=== PATIENT | male | born 1990 | race Caucasian/White ===

== ENCOUNTER 2021-02-20 22:10 | Emergency (ER) | payer SELFPAY ==
[2021-02-20 22:22] VITALS: BP 148/79; PULSE 80; RESP 15; TEMP 36.4; O2SAT 98
== END 2021-02-21 05:00 | disposition left against medical advice (07) ==
PROVIDERS: PCP Physician Assistant
DX: Z53.21 Procedure and treatment not carried out due to patient leaving prior to being seen by health care provider (principal)
CPT/HCPCS: 99199

== ENCOUNTER 2022-02-04 11:34 | Emergency (ER) | payer BC, SELFPAY ==
--- NOTE | ~2022-02-04 | XR_ITS ---
EXAMINATION: XR chest 1V 02/04/2022 12:53 INDICATION: Cough and congestion. Shortness of breath. PROCEDURE: AP view of the chest COMPARISON: No prior studies for comparison. FINDINGS: The lungs are clear. The cardiomediastinal silhouette is within normal limits. There are no pleural effusions. There is no pneumothorax suspected. IMPRESSION: 1: NO ACUTE CARDIOPULMONARY DISEASE. Reviewed, dictated and finalized at location A. CAL RECORD TECHNICIAN
[2022-02-04 12:20] VITALS: BP 144/89; PULSE 89; RESP 20; TEMP 36.6; O2SAT 97
[2022-02-04 13:19] LABS: Influenza A QL RT-PCR Positive (Negative); Influenza B QL RT-PCR Negative (Negative); RSV RNA, RT-PCR Negative (Negative); SARS-CoV-2 RNA PCR Negative
--- NOTE | 2022-02-04 13:24 | ED.SOB ---
HPI - SOB/Dyspnea General Chief Complaint: Shortness of Breath/Dyspnea Stated Complaint: SOB Time Seen by Provider: 02/04/22 13:08 History of Present Illness HPI Narrative: Patient is a 31-year-old male with a history of asthma presenting with shortness of breath. Patient states that he has had URI symptoms for the last 5 days. He went to another ER 2 days ago and was discharged with steroids and Tessalon Perles. States that he was feeling better but when he went to work today he was very short of breath so his work sent him home. States that taking a deep breath makes him cough really hard. He denies any chest pain, palpitations, lightheadedness. States that he mostly feels short of breath with exertion. States he continues to have a cough but he no longer has a fever. No headache, abdominal pain, nausea or vomiting, diarrhea, leg swelling. Related Data Home Medications Medication Instructions Recorded Confirmed benzonatate 100 mg capsule 100 mg PO TID 02/04/22 prednisone 20 mg tablet 40 mg PO DAILY 02/04/22 Allergies Allergy/AdvReac Type Severity Reaction Status Date / Time cefaclor Allergy Unknown Unknown Verified 02/13/19 19:23 Sulfa (Sulfonamide Allergy Unknown Unknown Verified 02/13/19 19:23 Antibiotics) Review of Systems Review of Systems: All systems reviewed & are unremarkable except as noted in HPI and below PMFSH Past Medical History Medical History Shoulder pain Chronic Surgical History Surgical History History of myringotomy Family History Family History Mother Hypertension Other Family history of allergic disorder Family history of cardiovascular disease Family history of malignant neoplasm Social History Social History Smoking status: Former smoker Smoking end date: 03/08/14 Alcohol intake: current Gender identity (if verbalized by the patient): Male Exam Narrative: GENERAL: Well-appearing, well-nourished, and in no acute distress. HEAD: Normocephalic, atraumatic. EYES: PERRLA and EOMI. ENT: Nares clear, no rhinorrhea or epistaxis. Mucous membranes moist. NECK: Supple. CHEST: Scattered wheezing bilaterally, no crackles. No respiratory distress. HEART: Regular rate and rhythm. No murmur heard. Normal peripheral pulses. ABDOMEN: Soft, nontender, nondistended, normal active bowel sounds. EXTREMITIES: Normal range of motion. No edema. SKIN: Warm, dry, no rash. NEURO: No focal deficits. Alert and oriented x3. PSYCH: Normal mood and affect. Course Vital Signs Vital signs: Vital Signs Temperature 97.8 F 02/04/22 12:20 Pulse Rate 89 02/04/22 12:20 Respiratory Rate 20 02/04/22 12:20 Blood Pressure 144/89 H 02/04/22 12:20 Pulse Oximetry 97 02/04/22 12:20 Oxygen Delivery Room Air 02/04/22 12:20 Temperature 97.8 F 02/04/22 12:20 Pulse Rate 89 02/04/22 12:20 Respiratory Rate 16 02/04/22 14:20 Blood Pressure 144/89 H 02/04/22 12:20 Pulse Oximetry 97 02/04/22 12:20 Oxygen Delivery Room Air 02/04/22 12:20 MDM - SOB/Dyspnea MDM Narrative Medical decision making narrative: Patient is a 31-year-old male presenting with shortness of breath. Patient is hypertensive, otherwise vitals are within normal limits. Exam is remarkable for scattered wheezing. Chest x-ray shows no acute abnormalities. Patient is positive for influenza A. We will provide an inhaler and advised that he continue taking the prednisone and Tessalon Perles that was previously prescribed. Appropriate return precautions given. Patient voiced understanding and is agreeable with plan. Discharged in stable condition. Lab Data Labs: Lab Results 02/04/22 Range/Units 12:25 Influenza A (RT-PCR) Positive (Negative) Influ
[2022-02-04 14:20] VITALS: RESP 16
== END 2022-02-04 14:20 | disposition home or self-care (01) ==
LOC: ANHED 13:49
PROVIDERS: Emergency Medicine; Emergency Provider Emergency Medicine; PCP Physician Assistant
DX: J10.1 Influenza due to other identified influenza virus with other respiratory manifestations (principal); Z20.822 Contact with and (suspected) exposure to COVID-19
CPT/HCPCS: 71045; 87637; 99283

== ENCOUNTER 2022-02-12 05:09 | Emergency (ER) | payer BC, SELFPAY ==
--- NOTE | ~2022-02-12 | XR_ITS ---
EXAMINATION: XR chest 1V portable DATE: 02/12/2022 06:38 INDICATION: Chest pain and cough TECHNIQUE: frontal view of the chest was obtained. COMPARISON: Chest radiograph dated 02/04/2022 FINDINGS: Lung volumes appear mildly decreased which could be due to more lordotic positioning. Bilateral incre ased perihilar interstitial pattern with bronchial wall thickening. No other airspace opacities, pleu ral effusion or pneumothorax. The cardiomediastinal silhouette is normal. IMPRESSION: 1. Bilateral increased perihilar interstitial pattern with bronchial wall thickening which could be d ue to bronchitis, reactive airway disease/asthma or mild pulmonary edema. Reviewed, dictated and finalized at location A. OTHERAPIST IMPRESSION: 1. Bilateral increased perihilar interstitial pattern with bronchial wall thick ening which could be due to bronchitis, reactive airway disease/asthma or mild pulmonary edema.
[2022-02-12 05:17] VITALS: BP 144/82; PULSE 113; RESP 22; TEMP 37.3; O2SAT 96
[2022-02-12] MEDS: IBUPROFEN 400 MG TABLET 800 MG PO (06:34)
[2022-02-12] MEDS: ACETAMINOPHEN 500 MG TABLET 1000 MG PO (06:35)
[2022-02-12 06:40] LABS: Basophils Percent Auto 0.2 % (0.2-1.2); Hematocrit 44.9 % (42.0-52.0); Hemoglobin 14.8 g/dL (14.0-18.0); Immature Granulocyte Absolute 0.15 K/mm3 (0.00-0.031); Immature Granulocyte Percent A 0.7 % (0-0.5); Lymphocytes Absolute Auto 1.19 K/mm3 (0.9-3.2); Lymphocytes Percent Auto 5.9 % (18.3-44.2); Mean Corpuscular Hemoglobin 30.6 pg (26-34); Mean Corpuscular Volume 92.8 fl (80-100); Mean Platelet Volume 10.2 fl (7.4-10.4); Monocytes Absolute Auto 1.5 K/mm3 (0.1-0.6); Monocytes Percent Auto 7.2 % (2.6-8.5); Neutrophils Absolute Auto 17.4 K/mm3 (1.3-6.7); Platelet Count Result 318 k/mm3 (150-375); Red Blood Count 4.84 M/mm3 (4.6-6.20); Red Cell Distribution Width 13.4 % (11.5-14.5); White Blood Count 20.3 K/mm3 (4.5-10.0)
[2022-02-12] MEDS: SODIUM CHLORIDE 0.9% IV 1,000 ML 999 ML IV CONT (06:44)
[2022-02-12 06:51] LABS: Anion Gap 6 mmol/L (8-16); Blood Urea Nitrogen 7 mg/dL (9-20); Calcium 8.7 mg/dL (8.4-10.2); Carbon Dioxide 28 mmol/L (22-30); Chloride 100 mmol/L (98-107); Estimated CRCL calculation 154 ml/min; Estimated Glomerular Filt Rate > 60; Glucose 135 mg/dL (65-110); Sodium 134 mmol/L (137-145)
--- NOTE | 2022-02-12 07:08 | ED.GENADULT ---
HPI - General Adult General Chief complaint: Chest Pain Stated complaint: chest pain due to cough x 2 days, flu + Time Seen by Provider: 02/12/22 06:02 History of Present Illness HPI narrative: This is a 31-year-old male presenting ED with a chief complaint of chest pain. Patient is diagnosed with flu approximately 10 days ago. He noticed improvement in his symptoms and then they started to get worse. Now he is experiencing left-sided chest pain that is described as sharp, radiating to his shoulder and back, 5/10 intensity that comes and goes. He has never experienced pain like this before there were no exacerbating or alleviating factors. Patient notes that he does have subjective fever and chills and a productive cough. He denies nausea vomiting diarrhea or decreased oral intake. Related Data Home Medications Medication Instructions Recorded Confirmed benzonatate 100 mg capsule 100 mg PO TID 02/04/22 prednisone 20 mg tablet 40 mg PO DAILY 02/04/22 Allergies Allergy/AdvReac Type Severity Reaction Status Date / Time cefaclor Allergy Unknown Unknown Verified 02/12/22 05:49 Sulfa (Sulfonamide Allergy Unknown Unknown Verified 02/12/22 05:49 Antibiotics) Review of Systems Review of Systems: CONSTITUTIONAL: Denies night sweats. EYES: No eye pain ENT: Denies rhinorrhea CARDIOVASCULAR: Denies palpitations RESPIRATORY: Denies hemoptysis GASTROINTESTINAL: Denies hematemesis GENITOURINARY: Denies hematuria. SKIN: Denies rash MUSCULOSKELETAL: Denies myalgia. NEUROLOGIC: Denies weakness. PSYCHIATRIC: Denies delusions PMFSH Past Medical History Medical History Shoulder pain Chronic Surgical History Surgical History History of myringotomy Family History Family History Mother Hypertension Other Family history of allergic disorder Family history of cardiovascular disease Family history of malignant neoplasm Social History Social History Smoking status: Former smoker Smoking end date: 03/08/14 Alcohol intake: current Gender identity (if verbalized by the patient): Male Exam Narrative: APPEARANCE: Patient appears uncomfortable Head: atraumatic. EYES: EOMI, NOSE: Atraumatic NECK: Trachea midline RESPIRATORY: patient has scattered expiratory wheezing, saturating well on room air, speaking in full sentences CARDIOVASCULAR: RRR, tachycardic ABDOMINAL: Non-distended MUSCULOSKELETAl: No obvious deformities NEURO: Alert. Moving 4/4 extremities SKIN:: Warm, dry. Normal color PSYCHIATRIC: Normal affect Course Vital Signs Vital signs: Vital Signs Temperature 99.2 F 02/12/22 05:17 Pulse Rate 113 H 02/12/22 05:17 Respiratory Rate 22 H 02/12/22 05:17 Blood Pressure 144/82 H 02/12/22 05:17 Pulse Oximetry 96 02/12/22 05:17 Oxygen Delivery Room Air 02/12/22 05:17 Temperature 99.2 F 02/12/22 05:17 Pulse Rate 113 H 02/12/22 05:17 Respiratory Rate 22 H 02/12/22 05:17 Blood Pressure 144/82 H 02/12/22 05:17 Pulse Oximetry 96 02/12/22 05:17 Oxygen Delivery Room Air 02/12/22 05:51 Medical Decision Making [facility] Narrative Medical decision making narrative: this is a 31-year-old male presenting to ED with chest pain and difficulty breathing. Patient has known flu diagnosis approximately 10 days ago. A chest x-ray is consistent with pneumonia. Patient was given a breathing treatment for his wheezing. This time patient is not requiring supplemental oxygen, is young and has no comorbidities. He would like to attempt a trial of outpatient therapy. Patient will be discharged w/ antibiotics, steroids and albuterol. patient has been given strict return precautions if his condition does not start to improve then he needs to return
--- NOTE | 2022-02-12 07:20 | PC.NURSE ---
Report given to PAUL Anne.
[2022-02-12] MEDS: ALBUTEROL SULFATE NEB 2.5 MG/3 ML INH 5 MG INHALATION (07:25)
[2022-02-12] MEDS: IPRATROPIUM BR 0.02% INH SOLN 0.5 MG/2.5 ML VIAL INHALATION (07:26)
[2022-02-12 07:30] VITALS: PULSE 112; RESP 22
[2022-02-12 08:05] VITALS: BP 127/87; PULSE 106; RESP 18; O2SAT 95
[2022-02-12] MEDS: predniSONE 20 MG TABLET 60 MG PO (08:25)
[2022-02-12 08:30] LABS: Influenza A QL RT-PCR Positive (Negative); Influenza B QL RT-PCR Negative (Negative); SARS-CoV-2 RNA PCR Negative
== END 2022-02-12 08:31 | disposition home or self-care (01) ==
PROVIDERS: Emergency Provider Emergency Medicine; PCP Physician Assistant
DX: J18.9 Pneumonia, unspecified organism (principal); J11.1 Influenza due to unidentified influenza virus with other respiratory manifestations; Z20.822 Contact with and (suspected) exposure to COVID-19; Z87.891 Personal history of nicotine dependence
CPT/HCPCS: 36415; 71045; 80048; 85025; 87636; 94640; 96360; 99284; A9270; J7030; J7512

== ENCOUNTER 2022-02-12 22:00 | Inpatient (IN) | payer BC, SELFPAY ==
--- NOTE | ~2022-02-12 | XR_ITS ---
EXAMINATION: XR chest 1V portable DATE: 02/15/2022 11:02 INDICATION: Central line placement. TECHNIQUE: A single frontal view of the chest was obtained. COMPARISON: Chest single view 02/12/2022, chest CT 02/13/2022 FINDINGS: There are airspace opacities in the lower lung zones. No pleural effusion or pneumothorax. The heart size is normal. A right upper extremity peripherally inserted central venous catheter (PICC ) is seen with tip in the right atrium. IMPRESSION: 1. PICC tip in the right atrium. Retraction 3 cm is recommended. 2. Airspace opacities in the lower lung zones, consistent with pneumonia. Reviewed, dictated and finalized at location A. TRICAL ENGINEERING PROFESSOR
--- NOTE | ~2022-02-12 | XR_ITS ---
EXAMINATION: XR chest 2V DATE: 02/17/2022 08:50 INDICATION: Pneumonia. TECHNIQUE: Frontal and lateral views of the chest were obtained. COMPARISON: Chest single view 02/16/2022, chest CT 02/13/2022 FINDINGS: There are airspace opacities in left lower lung zone. No pleural effusion or pneumothorax. The heart size is normal. A right upper extremity peripherally inserted central venous catheter (PICC ) is seen with tip in the superior vena cava. IMPRESSION: 1. Stable airspace opacities in left lower lung zone, consistent with pneumonia. Reviewed, dictated and finalized at location A. ECT MANAGEMENT MANAGER IMPRESSION: 1. Stable airspace opacities in left lower lung zone, consistent with pneumonia .
--- NOTE | ~2022-02-12 | CT_ITS ---
EXAMINATION: CTA chest PE protocol DATE: 02/13/2022 01:45 INDICATION: Chest pain, shortness of breath. Pneumonia. TECHNIQUE: Computed tomography angiography (CTA) of the chest was performed with 100 mL Omnipaque-350 intravenous contrast timed to evaluate the pulmonary arteries. Coronal maximum intensity projection 3D-reconstructions were created by the technologist. Automated exposure control and iterative reconst ruction technique were employed. Exam dose: 896.80 mGy-cm total exam DLP. COMPARISON: 02/12/2022 portable AP chest FINDINGS: There is suboptimal contrast enhancement of the pulmonary arteries. No central pulmonary em bolus is detected. No thoracic aortic aneurysm. Normal heart size. No pericardial or pleural effusion. There is focal atelectasis/consolidation in the anteromedial lingular area as well as bilateral lower lobe patchy infiltrate and/or atelectasis. IMPRESSION: Patchy infiltrate and/atelectasis of lingula and both lower lobes Suboptimal opacification of the pulmonary arteries; no central pulmonary embolism is noted Reviewed, dictated and finalized at Location A. Reviewed, dictated and finalized at location B. CHARGER IMPRESSION: Patchy infiltrate and/atelectasis of lingula and both lower lobes Suboptimal opacification of the pulmonary arteries; no central pulmonary emboli sm is noted
--- NOTE | ~2022-02-12 | XR_ITS ---
EXAMINATION: XR chest 1V portable DATE: 02/16/2022 09:02 INDICATION: Pneumonia TECHNIQUE: frontal view of the chest was obtained. COMPARISON: Chest radiograph dated 02/15/2022 FINDINGS: Right upper extremity peripherally inserted central venous catheter (PICC) tip at the mid superior v [place] cava. Persistent airspace opacities in the left lower lung zone consistent with pneumonia. No pul monary edema, pleural effusion or pneumothorax. The cardiomediastinal silhouette is normal. Visualize d bones and soft tissues are unremarkable. IMPRESSION: 1. Persistent opacity left lower lung zone consistent with pneumonia. Reviewed, dictated and finalized at location A. NCIAL FOUNDATIONS ASSOCIATE
[2022-02-12 22:04] VITALS: BP 146/77; PULSE 107; RESP 20; TEMP 37.3; O2SAT 95
[2022-02-12 22:59] LABS: Basophils Percent Auto 0.2 % (0.2-1.2); Hematocrit 41.4 % (42.0-52.0); Immature Granulocyte Absolute 0.15 K/mm3 (0.00-0.031); Immature Granulocyte Percent A 0.7 % (0-0.5); Lymphocytes Absolute Auto 1.89 K/mm3 (0.9-3.2); Lymphocytes Percent Auto 8.8 % (18.3-44.2); Mean Corpuscular HGB Conc 33.8 g/dl (32-36); Mean Corpuscular Hemoglobin 30.8 pg (26-34); Mean Corpuscular Volume 91.2 fl (80-100); Mean Platelet Volume 10.4 fl (7.4-10.4); Monocytes Absolute Auto 1.3 K/mm3 (0.1-0.6); Monocytes Percent Auto 5.9 % (2.6-8.5); Neutrophils Absolute Auto 18.2 K/mm3 (1.3-6.7); Neutrophils Percent Auto 84.4 % (45.5-73.1); Platelet Count Result 294 k/mm3 (150-375); Red Blood Count 4.54 M/mm3 (4.6-6.20); Red Cell Distribution Width 13.4 % (11.5-14.5); White Blood Count 21.5 K/mm3 (4.5-10.0)
[2022-02-12 23:08] LABS: Atypical Lymphocytes Present; Platelet Estimate Adequate (Adequate); Schistocytes None Seen (NORMAL)
[2022-02-12 23:14] LABS: Alanine Aminotransferase 41 U/L (6-50); Albumin Level 4.2 g/dL (3.5-5.1); Alkaline Phosphatase 94 U/L (38-126); Anion Gap 7 mmol/L (8-16); Aspartate Amino Transferase 29 U/L (17-59); Bilirubin,Total 0.7 mg/dL (0.2-1.3); Blood Urea Nitrogen 8 mg/dL (9-20); Calcium 9.1 mg/dL (8.4-10.2); Carbon Dioxide 26 mmol/L (22-30); Chloride 105 mmol/L (98-107); Estimated CRCL calculation 171 ml/min; Estimated Glomerular Filt Rate > 60; Glucose 167 mg/dL (65-110); Potassium 3.7 mmol/L (3.4-5.0); Sodium 138 mmol/L (137-145)
--- NOTE | 2022-02-12 23:14 | ECG_ITS ---
Measurements Intervals [place] Rate: 98 P: 48 ID: [id number] QRS: 18 QRSD: 101 T: 18 QT: 336 QTc: 430 Interpretive Statements SINUS RHYTHM WITHIN NORMAL LIMITS NO PREVIOUS ECG AVAILABLE FOR COMPARISON Electronically Signed On 02-13-2022 7:46:10 FILTER PRESS PUMPER by Vicente Gibson M.D.
--- NOTE | 2022-02-12 23:14 | ED.GENADULT ---
HPI - General Adult General Chief complaint: Unspecified <CARMEN Sandy Last Filed: 02/13/22 03:16> Stated complaint: pneumonia <CARMEN Sandy Last Filed: 02/13/22 03:16> Time Seen by Provider: 02/12/22 22:10 <CARMEN Sandy Last Filed: 02/13/22 03:16> Source: patient <CARMEN Sandy Last Filed: 02/13/22 03:16> Mode of arrival: ambulatory <CARMEN Sandy Last Filed: 02/13/22 03:16> Limitations: no limitations <CARMEN Sandy Last Filed: 02/13/22 03:16> History of Present Illness HPI narrative: This is a 31 year old male that presents to the ER for shortness of breath. Reports he was seen early this morning diagnosed with pneumonia. He was also diagnosed with influenza about 10 days ago. Reports he was started on antibiotics, steroid and given albuterol inhaler. Reports he has been taking his inhaler every 4 hours with continued wheezing and shortness of breath. Reports chest discomfort when coughing. Reports a low grade fever. Denies lower extremity edema. <CARMEN Sandy Last Filed: 02/13/22 03:16> Related Data Home medications: Home Medications Medication Instructions Recorded Confirmed benzonatate 100 mg capsule 100 mg PO TID 02/04/22 02/13/22 <CARMEN Sandy Last Filed: 02/13/22 03:16> Allergies/adverse reactions: Allergies Allergy/AdvReac Type Severity Reaction Status Date / Time cefaclor Allergy Unknown Unknown Verified 02/12/22 05:49 Sulfa (Sulfonamide Allergy Unknown Unknown Verified 02/12/22 05:49 Antibiotics) <CARMEN Sandy Last Filed: 02/13/22 03:16> Review of Systems Review of Systems: CONSTITUTIONAL: Reports fever EYES: Denies redness, or discharge. ENT: Reports congestion, sore throat CARDIOVASCULAR: Reports chest pain. Denies edema. RESPIRATORY: Reports cough and dyspnea. GASTROINTESTINAL: Denies vomiting GENITOURINARY: Denies dysuria or hematuria. SKIN: Denies rash MUSCULOSKELETAL: Reports myalgia. NEUROLOGIC: Denies headache <Estefany Sung PA-C - Last Filed: 02/13/22 03:16> All systems reviewed & are unremarkable except as noted in HPI and below <Estefany Sung PA-C - Last Filed: 02/13/22 03:16> [facility] Past Medical History Medical History: Medical History (Updated 02/13/22 @ 02:13 by Estefany Sung PA-C) History of asthma Shoulder pain Chronic <Estefany Sung PA-C - Last Filed: 02/13/22 03:16> Surgical History Surgical History: Surgical History History of myringotomy <Estefany Sung PA-C - Last Filed: 02/13/22 03:16> Family History Family History: Family History Mother Hypertension Other Family history of allergic disorder Family history of cardiovascular disease Family history of malignant neoplasm <Estefany Sung PA-C - Last Filed: 02/13/22 03:16> Social History Social History: Social History Smoking status: Former smoker Tobacco type: cigarettes Second hand tobacco smoke exposure: No Smoking end date: 03/08/14 Alcohol intake: never Substance use: current Substance use type: does not use Lack of Transportation: No Lack of Food: Never True Current Housing: I Have Housing Concerned About Future Housing: No Difficulty Paying Gas/Electric Bills: No Difficulty Paying for Meds: No Currently Unemployed: No Education: High School Diploma/GED Difficulty w/ Childcare or Family Care: No Gender identity (if verbalized by the patient): Male Spiritual care concerns: No <Esteafny Sung PA-C - Last Filed: 02/13/22 03:16> Exam Narrative: GENERAL: Well-appearing, well-nourished, and in no acute distress. HEAD: Normocephalic, atraumatic. EYES: EOMI. ENT: Nares clear, no rhinorrhea or epistaxis. Muco
[2022-02-12 23:18] VITALS: BP 124/70; PULSE 95; RESP 16; O2SAT 96
[2022-02-12] MEDS: IPRATROPIUM BR 0.02% INH SOLN 0.5 MG/2.5 ML VIAL INHALATION (23:22)
[2022-02-12] MEDS: ALBUTEROL SULFATE NEB 2.5 MG/3 ML INH 5 MG INHALATION (23:23)
[2022-02-12 23:26] VITALS: PULSE 89; RESP 16
[2022-02-12 23:31] VITALS: PULSE 86
[2022-02-12 23:46] VITALS: PULSE 96
[2022-02-12 23:57] LABS: Hemoglobin A1C 5.9 % (<5.7)
[2022-02-13] VITALS (15 sets, daily range): BP systolic 108–149; BP diastolic 57–94; PULSE 88–128; RESP 16–57; TEMP 36.1–37.2; O2SAT 93–100; BMI 50.0
[2022-02-13] MEDS: ACETAMINOPHEN 500 MG TABLET 1000 MG PO (00:02)
[2022-02-13 00:06] LABS: Troponin I < 0.012 ng/mL (0.000-0.034)
[2022-02-13] MEDS: ALBUTEROL SULFATE NEB 2.5 MG/3 ML INH 5 MG INHALATION ×4 (01:05→21:47)
[2022-02-13] MEDS: IPRATROPIUM BR 0.02% INH SOLN 0.5 MG/2.5 ML VIAL INHALATION ×4 (01:05→21:47)
[2022-02-13 01:22] LABS: INR 1.1; Prothrombin Time 14.1 Seconds (11.1-14.7)
[2022-02-13 01:30] LABS: D Dimer 0.42 ug/mL (<0.48)
[2022-02-13] MEDS: KETOROLAC 15 MG/ML VIAL (*BKC) IV PUSH (01:33)
[2022-02-13 02:48] LABS: Influenza A QL RT-PCR Positive (Negative); Influenza B QL RT-PCR Negative (Negative); SARS-CoV-2 RNA PCR Negative
[2022-02-13] MEDS: CYCLOBENZAPRINE HCL 10 MG TABLET PO (03:52)
[2022-02-13] MEDS: KETOROLAC 30 MG/ML VIAL (*BKC) 15 MG IV PUSH (04:46)
[2022-02-13] MEDS: SODIUM CHLORIDE 0.9% IV 500 ML IV CONT (06:52)
[2022-02-13] MEDS: methylPREDNISolone SOD SUCC 125 MG VIAL 60 MG IV PUSH ×3 (06:53→17:56)
[2022-02-13] MEDS: BENZONATATE 100 MG CAPSULE PO ×2 (13:41→16:34)
--- NOTE | 2022-02-13 14:09 | PM.IMHP ---
H&P: HPI History of Present Illness Date/Time: 02/13/22 14:09 Chief Complaint: Shortness of breath Narrative: ED-HPI narrative: This is a 31 year old male that presents to the ER for shortness of breath. Reports he was seen early this morning diagnosed with pneumonia. He was also diagnosed with influenza about 10 days ago. Reports he was started on antibiotics, steroid and given albuterol inhaler. Reports he has been taking his inhaler every 4 hours with continued wheezing and shortness of breath. Reports chest discomfort when coughing. Reports a low grade fever. Denies lower extremity edema. patient with history of asthma states he had outgrown asthma however he continued to smoke and recently had developed flu and since then he developed shortness of breath he had been using his inhaler every 4 hours without much relief, emergency depart further evaluation CTA of the chest negative for pulmonary emboli but did show patchy infiltrate and bilateral lower lobe suspect patient has community-acquired pneumonia being treated with levofloxacin vancomycin and bronchodilators, will continue to monitor will have PT OT evaluate the patient, repeat chest x-ray in 2 days and further recommendation to follow. patient admitted as inpatient with pneumonia. Review of Systems Review of Systems: CONSTITUTIONAL: Reports fever EYES: Denies redness, or discharge. ENT: Reports congestion, sore throat CARDIOVASCULAR: Reports chest pain. Denies edema. RESPIRATORY: Reports cough and dyspnea. GASTROINTESTINAL: Denies vomiting GENITOURINARY: Denies dysuria or hematuria. SKIN: Denies rash MUSCULOSKELETAL: Reports myalgia. NEUROLOGIC: Denies headache All systems reviewed & are unremarkable except as noted in HPI and below PMFSH Past Medical History Medical History (Updated 02/13/22 @ 02:13 by Estefany Sung PA-C) History of asthma Shoulder pain Chronic Surgical History Surgical History History of myringotomy Family History Family History Mother Hypertension Other Family history of allergic disorder Family history of cardiovascular disease Family history of malignant neoplasm Social History Social History Smoking status: Former smoker Tobacco type: cigarettes Second hand tobacco smoke exposure: No Smoking end date: 03/08/14 Alcohol intake: never Substance use: current Substance use type: does not use Lack of Transportation: No Lack of Food: Never True Current Housing: I Have Housing Concerned About Future Housing: No Difficulty Paying Gas/Electric Bills: No Difficulty Paying for Meds: No Currently Unemployed: No Education: High School Diploma/GED Difficulty w/ Childcare or Family Care: No Gender identity (if verbalized by the patient): Male Spiritual care concerns: No Meds Home Medications and Allergies Home Medications Medication Instructions Recorded Confirmed Type albuterol sulfate 90 mcg/actuation 2 puff inhalation QID PRN 02/04/22 02/13/22 Rx aerosol inhaler shortness of breath or wheezing #6.7 grams benzonatate 100 mg capsule 100 mg PO TID 02/04/22 02/13/22 History prednisone 20 mg tablet 40 mg PO DAILY 02/04/22 02/13/22 History acetaminophen 500 mg tablet 1,000 mg PO TID PRN emma 7 days #42 02/12/22 02/13/22 Rx tabs albuterol sulfate 90 mcg/actuation 1 puff inhalation QID #8.5 grams 02/12/22 02/13/22 Rx aerosol inhaler azithromycin 250 mg tablet See Rx Instructions PO .COMPLEX #6 02/12/22 02/13/22 Rx (Zithromax Z-Po) tabs ibuprofen 800 mg tablet 800 mg PO TID PRN pain 7 days #21 02/12/22 02/13/22 Rx tabs prednisone 50 mg tablet 50 mg PO DAILY #5 tabs 02/12/22 02/13/22 Rx Allergies Allergy/AdvReac Type Severity Reaction Status Date / Time cefaclor Allergy Unknown Unknown Verified
--- NOTE | 2022-02-13 14:29 | ECG_ITS ---
Measurements Intervals [place] Rate: 123 P: 49 OR: 142 QRS: -8 QRSD: 94 T: 8 QT: 295 QTc: 423 Interpretive Statements SINUS TACHYCARDIA VOLTAGE CRITERIA FOR LVH [MEETS CRITERIA IN ONE OF: R(aVL), S(V1), R(V5), R(V5/V6)+S(V1)] COMPARED TO ECG 02/13/2022 00:07:53 PATIENT IS MORE TACHYCARDIC NO OTHER SIGNIFICANT CHANGE Electronically Signed On 02-13-2022 17:24:26 BOAT RIGGER by Vicente Gibson M.D.
[2022-02-13] MEDS: ALPRAZolam (*CRX) 0.5 MG TABLET PO (16:33)
[2022-02-13] MEDS: FUROSEMIDE INJ 40 MG/4 ML VIAL IV PUSH (16:33)
[2022-02-13] MEDS: ENOXAPARIN 40 MG/0.4 ML SYRINGE SUB-Q (21:48)
[2022-02-14] MEDS: methylPREDNISolone SOD SUCC 125 MG VIAL 60 MG IV PUSH ×4 (01:04→17:57)
[2022-02-14 01:39] LABS: Vancomycin Trough 10.5 ug/mL (10.0-20.0)
[2022-02-14 06:00] VITALS: BP 135/85; PULSE 110; RESP 20; TEMP 36.8; O2SAT 94
[2022-02-14 07:49] LABS: Hematocrit 41.2 % (42.0-52.0); Hemoglobin 13.5 g/dL (14.0-18.0); Mean Corpuscular HGB Conc 32.8 g/dl (32-36); Mean Corpuscular Volume 91.6 fl (80-100); Mean Platelet Volume 11.1 fl (7.4-10.4); Platelet Count Result 330 k/mm3 (150-375); Red Cell Distribution Width 13.5 % (11.5-14.5); White Blood Count 25.8 K/mm3 (4.5-10.0)
[2022-02-14] MEDS: ALBUTEROL SULFATE NEB 2.5 MG/3 ML INH 5 MG INHALATION (08:04)
[2022-02-14] MEDS: IPRATROPIUM BR 0.02% INH SOLN 0.5 MG/2.5 ML VIAL INHALATION (08:05)
[2022-02-14 08:07] VITALS: PULSE 90; RESP 20
[2022-02-14 08:09] LABS: Anion Gap 10 mmol/L (8-16); Blood Urea Nitrogen 12 mg/dL (9-20); Calcium 9.2 mg/dL (8.4-10.2); Carbon Dioxide 25 mmol/L (22-30); Chloride 102 mmol/L (98-107); Estimated CRCL calculation 174 ml/min; Estimated Glomerular Filt Rate > 60; Glucose 346 mg/dL (65-110); Potassium 4.2 mmol/L (3.4-5.0); Sodium 137 mmol/L (137-145)
[2022-02-14 08:35] VITALS: PULSE 95; RESP 20
[2022-02-14] MEDS: ENOXAPARIN 40 MG/0.4 ML SYRINGE SUB-Q ×2 (10:14→20:09)
[2022-02-14] MEDS: BENZONATATE 100 MG CAPSULE PO ×3 (10:15→17:58)
--- NOTE | 2022-02-14 11:46 | PM.IMPN ---
Progress Note: A&P Assessment and Plan (1) Pneumonia: Qualifiers: Laterality: bilateral Lung location: lower lobe of lung Pneumonia type: due to unspecified organism Qualified Code(s): J18.9 - Pneumonia, unspecified organism Code(s): J18.9 - Pneumonia, unspecified organism Status: Acute Assessment and Plan: ED-HPI narrative: This is a 31 year old male that presents to the ER for shortness of breath. Reports he was seen early this morning diagnosed with pneumonia. He was also diagnosed with influenza about 10 days ago. Reports he was started on antibiotics, steroid and given albuterol inhaler. Reports he has been taking his inhaler every 4 hours with continued wheezing and shortness of breath. Reports chest discomfort when coughing. Reports a low grade fever. Denies lower extremity edema. 02/14/2022 interval history: patient with history of asthma states he had outgrown asthma however he continued to smoke and recently had developed flu and since then he developed shortness of breath he had been using his inhaler every 4 hours without much relief, on 02/13 presented emergency depart to further evaluation CTA of the chest negative for pulmonary emboli but did show patchy infiltrate and bilateral lower lobe suspect patient has community-acquired pneumonia being treated with levofloxacin vancomycin and bronchodilators, today patient states feeling little better not as short of breath, will continue present management, will continue to monitor will have PT OT evaluate the patient, repeat chest x-ray in 2 days and further recommendation to follow. (2) Asthma exacerbation: Qualifiers: Asthma persistence: intermittent Asthma severity: unspecified severity Qualified Code(s): J45.21 - Mild intermittent asthma with (acute) exacerbation Code(s): J45.901 - Unspecified asthma with (acute) exacerbation Status: Acute Assessment and Plan: patient with history of asthma triggered by recent upper respiratory infection will continue bronchodilator. Subjective Date/time seen: 02/14/22 11:46 ED-HPI narrative: This is a 31 year old male that presents to the ER for shortness of breath. Reports he was seen early this morning diagnosed with pneumonia. He was also diagnosed with influenza about 10 days ago. Reports he was started on antibiotics, steroid and given albuterol inhaler. Reports he has been taking his inhaler every 4 hours with continued wheezing and shortness of breath. Reports chest discomfort when coughing. Reports a low grade fever. Denies lower extremity edema. 02/14/2022 interval history: patient with history of asthma states he had outgrown asthma however he continued to smoke and recently had developed flu and since then he developed shortness of breath he had been using his inhaler every 4 hours without much relief, on 02/13 presented emergency depart to further evaluation CTA of the chest negative for pulmonary emboli but did show patchy infiltrate and bilateral lower lobe suspect patient has community-acquired pneumonia being treated with levofloxacin vancomycin and bronchodilators, today patient states feeling little better not as short of breath, will continue present management, will continue to monitor will have PT OT evaluate the patient, repeat chest x-ray in 2 days and further recommendation to follow. Review of Systems Review of Systems: All systems reviewed & are unremarkable except as noted in HPI and below Exam Narrative: morbidly obese Patient is comfortable, NAD HEENT: eyes are clear and none icteric LUNGS: bilateral fair air entry with harsh breath sound HEART: RR S1S2 ABD: BS+, Soft and nontender Lower extremities: no edema SKIN: nonjaundiced Neuro: grossly intact. Objective Data Vital Signs Vital Signs: Vital Signs - 24 hr 02/13/22 13:39 02/13/22 13:53 02/13/22 14:00 Temperature 98.5 F Pulse Rate 92 96 128 H Respiratory Rate 18 18 20 Blood
[2022-02-14 14:43] VITALS: BP 137/86; PULSE 127; RESP 18; TEMP 36.8; O2SAT 93
--- NOTE | 2022-02-14 18:03 | PCRCNOTE ---
Window of time for administration has passed. See next scheduled administration.
--- NOTE | 2022-02-14 21:56 | PC.NURSE ---
vegetable specker on day shift ordered PICC line from [facility]. Waiting on their arrival. RN to contact provider about pending IV medications at this time.
[2022-02-14 22:00] VITALS: BP 130/86; PULSE 101; RESP 19; TEMP 35.9; O2SAT 94
[2022-02-15] VITALS (10 sets, daily range): BP systolic 125–137; BP diastolic 74–83; PULSE 87–114; RESP 14–18; TEMP 36–36.6; O2SAT 93–98
--- NOTE | 2022-02-15 01:32 | PCRCNOTE ---
window of time for administration has passed. See next available administration
[2022-02-15] MEDS: IPRATROPIUM BR 0.02% INH SOLN 0.5 MG/2.5 ML VIAL INHALATION ×4 (02:21→20:52)
[2022-02-15] MEDS: ALBUTEROL SULFATE NEB 2.5 MG/3 ML INH 5 MG INHALATION ×4 (02:21→20:52)
[2022-02-15] MEDS: levoFLOXacin 750 MG TABLET PO (05:31)
[2022-02-15 07:59] LABS: Hematocrit 42.9 % (42.0-52.0); Hemoglobin 13.9 g/dL (14.0-18.0); Mean Corpuscular HGB Conc 32.4 g/dl (32-36); Mean Corpuscular Hemoglobin 30.8 pg (26-34); Mean Corpuscular Volume 95.1 fl (80-100); Mean Platelet Volume 11.2 fl (7.4-10.4); Platelet Count Result 329 k/mm3 (150-375); Red Blood Count 4.51 M/mm3 (4.6-6.20); Red Cell Distribution Width 13.5 % (11.5-14.5); White Blood Count 21.8 K/mm3 (4.5-10.0)
[2022-02-15 08:04] LABS: Anion Gap 8 mmol/L (8-16); Blood Urea Nitrogen 18 mg/dL (9-20); Carbon Dioxide 26 mmol/L (22-30); Chloride 99 mmol/L (98-107); Estimated CRCL calculation 154 ml/min; Estimated Glomerular Filt Rate > 60; Glucose 334 mg/dL (65-110); Potassium 4.4 mmol/L (3.4-5.0); Sodium 133 mmol/L (137-145)
[2022-02-15] MEDS: BENZONATATE 100 MG CAPSULE PO ×3 (10:03→17:00)
[2022-02-15] MEDS: ENOXAPARIN 40 MG/0.4 ML SYRINGE SUB-Q ×2 (10:04→20:09)
[2022-02-15] MEDS: predniSONE 20 MG TABLET 60 MG PO (10:04)
--- NOTE | 2022-02-15 11:55 | PM.IMPN ---
Progress Note: A&P Assessment and Plan (1) Pneumonia: Qualifiers: Laterality: bilateral Lung location: lower lobe of lung Pneumonia type: due to unspecified organism Qualified Code(s): J18.9 - Pneumonia, unspecified organism Code(s): J18.9 - Pneumonia, unspecified organism Status: Acute Assessment and Plan: ED-HPI narrative: This is a 31 year old male that presents to the ER for shortness of breath. Reports he was seen early this morning diagnosed with pneumonia. He was also diagnosed with influenza about 10 days ago. Reports he was started on antibiotics, steroid and given albuterol inhaler. Reports he has been taking his inhaler every 4 hours with continued wheezing and shortness of breath. Reports chest discomfort when coughing. Reports a low grade fever. Denies lower extremity edema. 02/15/2022 interval history: patient with history of asthma states he had outgrown asthma however he continued to smoke and recently had developed flu and since then he developed shortness of breath he had been using his inhaler every 4 hours without much relief, on 02/13 presented emergency depart to further evaluation CTA of the chest negative for pulmonary emboli but did show patchy infiltrate and bilateral lower lobe suspect patient has community-acquired pneumonia being treated with levofloxacin vancomycin and bronchodilators, today patient states feeling much better not as short of breath, will continue present management, will repeat chest x-ray tomorrow and further recommendation to follow, will continue to monitor will have PT OT evaluate the patient. (2) Asthma exacerbation: Qualifiers: Asthma persistence: intermittent Asthma severity: unspecified severity Qualified Code(s): J45.21 - Mild intermittent asthma with (acute) exacerbation Code(s): J45.901 - Unspecified asthma with (acute) exacerbation Status: Acute Assessment and Plan: patient with history of asthma triggered by recent upper respiratory infection will continue bronchodilator. Subjective Date/time seen: 02/15/22 11:55 ED-HPI narrative: This is a 31 year old male that presents to the ER for shortness of breath. Reports he was seen early this morning diagnosed with pneumonia. He was also diagnosed with influenza about 10 days ago. Reports he was started on antibiotics, steroid and given albuterol inhaler. Reports he has been taking his inhaler every 4 hours with continued wheezing and shortness of breath. Reports chest discomfort when coughing. Reports a low grade fever. Denies lower extremity edema. 02/15/2022 interval history: patient with history of asthma states he had outgrown asthma however he continued to smoke and recently had developed flu and since then he developed shortness of breath he had been using his inhaler every 4 hours without much relief, on 02/13 presented emergency depart to further evaluation CTA of the chest negative for pulmonary emboli but did show patchy infiltrate and bilateral lower lobe suspect patient has community-acquired pneumonia being treated with levofloxacin vancomycin and bronchodilators, today patient states feeling much better not as short of breath, will continue present management, will repeat chest x-ray tomorrow and further recommendation to follow, will continue to monitor will have PT OT evaluate the patient. Review of Systems Review of Systems: All systems reviewed & are unremarkable except as noted in HPI and below Exam Narrative: morbidly obese Patient is comfortable, NAD HEENT: eyes are clear and none icteric LUNGS: bilateral fair air entry with harsh breath sound HEART: RR S1S2 ABD: BS+, Soft and nontender Lower extremities: no edema SKIN: nonjaundiced Neuro: grossly intact. Objective Data Vital Signs Vital Signs: Vital Signs - 24 hr 02/14/22 14:43 02/15/22 02:22 02/15/22 02:43 Temperature 98.2 F Pulse Rate 127 H 98 87 Respiratory Rate 18 18 18
[2022-02-16] VITALS (8 sets, daily range): BP systolic 117–139; BP diastolic 73–80; PULSE 84–99; RESP 16–20; TEMP 36.2–37.1; O2SAT 94–98
[2022-02-16 04:42] LABS: Hematocrit 38.1 % (42.0-52.0); Hemoglobin 12.4 g/dL (14.0-18.0); Mean Corpuscular HGB Conc 32.5 g/dl (32-36); Mean Corpuscular Hemoglobin 30.3 pg (26-34); Mean Corpuscular Volume 93.2 fl (80-100); Mean Platelet Volume 10.6 fl (7.4-10.4); Platelet Count Result 267 k/mm3 (150-375); Red Blood Count 4.09 M/mm3 (4.6-6.20); Red Cell Distribution Width 13.6 % (11.5-14.5); White Blood Count 12.5 K/mm3 (4.5-10.0)
[2022-02-16 05:24] LABS: Anion Gap 5 mmol/L (8-16); Blood Urea Nitrogen 19 mg/dL (9-20); Calcium 7.9 mg/dL (8.4-10.2); Carbon Dioxide 28 mmol/L (22-30); Chloride 96 mmol/L (98-107); Estimated CRCL calculation 174 ml/min; Estimated Glomerular Filt Rate > 60; Glucose 361 mg/dL (65-110); Sodium 129 mmol/L (137-145)
[2022-02-16] MEDS: levoFLOXacin 750 MG TABLET PO (06:14)
[2022-02-16] MEDS: BENZONATATE 100 MG CAPSULE PO ×3 (08:55→16:33)
[2022-02-16] MEDS: ENOXAPARIN 40 MG/0.4 ML SYRINGE SUB-Q ×2 (08:56→20:12)
[2022-02-16] MEDS: predniSONE 40 MG, predniSONE 10 MG 50 MG PO (08:56)
[2022-02-16] MEDS: IPRATROPIUM BR 0.02% INH SOLN 0.5 MG/2.5 ML VIAL INHALATION ×3 (09:12→20:57)
[2022-02-16] MEDS: ALBUTEROL SULFATE NEB 2.5 MG/3 ML INH 5 MG INHALATION ×3 (09:12→20:57)
[2022-02-16 12:34] LABS: Vancomycin Trough 15.1 ug/mL (10.0-20.0)
--- NOTE | 2022-02-16 14:33 | PM.IMPN ---
Progress Note: A&P Assessment and Plan (1) Pneumonia: Qualifiers: Laterality: bilateral Lung location: lower lobe of lung Pneumonia type: due to unspecified organism Qualified Code(s): J18.9 - Pneumonia, unspecified organism Code(s): J18.9 - Pneumonia, unspecified organism Status: Acute Assessment and Plan: ED-HPI narrative: This is a 31 year old male that presents to the ER for shortness of breath. Reports he was seen early this morning diagnosed with pneumonia. He was also diagnosed with influenza about 10 days ago. Reports he was started on antibiotics, steroid and given albuterol inhaler. Reports he has been taking his inhaler every 4 hours with continued wheezing and shortness of breath. Reports chest discomfort when coughing. Reports a low grade fever. Denies lower extremity edema. 02/16/2022 interval history: patient with history of asthma states he had outgrown asthma however he continued to smoke and recently had developed flu and since then he developed shortness of breath he had been using his inhaler every 4 hours without much relief, on 02/13 presented emergency depart to further evaluation CTA of the chest negative for pulmonary emboli but did show patchy infiltrate and bilateral lower lobe suspect patient has community-acquired pneumonia being treated with levofloxacin 3/ vancomycin and bronchodilators, today patient states feeling much better not as short of breath, will continue present management, repeat chest x-ray today showed persistent pneumonia, will CPM, and further recommendation to follow, will continue to monitor will have PT OT evaluate the patient. (2) Asthma exacerbation: Qualifiers: Asthma persistence: intermittent Asthma severity: unspecified severity Qualified Code(s): J45.21 - Mild intermittent asthma with (acute) exacerbation Code(s): J45.901 - Unspecified asthma with (acute) exacerbation Status: Acute Assessment and Plan: patient with history of asthma triggered by recent upper respiratory infection will continue bronchodilator. Subjective Date/time seen: 02/16/22 14:33 ED-HPI narrative: This is a 31 year old male that presents to the ER for shortness of breath. Reports he was seen early this morning diagnosed with pneumonia. He was also diagnosed with influenza about 10 days ago. Reports he was started on antibiotics, steroid and given albuterol inhaler. Reports he has been taking his inhaler every 4 hours with continued wheezing and shortness of breath. Reports chest discomfort when coughing. Reports a low grade fever. Denies lower extremity edema. 02/16/2022 interval history: patient with history of asthma states he had outgrown asthma however he continued to smoke and recently had developed flu and since then he developed shortness of breath he had been using his inhaler every 4 hours without much relief, on 02/13 presented emergency depart to further evaluation CTA of the chest negative for pulmonary emboli but did show patchy infiltrate and bilateral lower lobe suspect patient has community-acquired pneumonia being treated with levofloxacin / vancomycin and bronchodilators, today patient states feeling much better not as short of breath, will continue present management, repeat chest x-ray today showed persistent pneumonia, will CPM, and further recommendation to follow, will continue to monitor will have PT OT evaluate the patient. Review of Systems Review of Systems: All systems reviewed & are unremarkable except as noted in HPI and below Exam Narrative: morbidly obese Patient is comfortable, NAD HEENT: eyes are clear and none icteric LUNGS: bilateral fair air entry with harsh breath sound HEART: RR S1S2 ABD: BS+, Soft and nontender Lower extremities: no edema SKIN: nonjaundiced Neuro: grossly intact. Objective Data Vital Signs Vital Signs: Vital Signs - 24 hr 02/15/22 20:53 02/15/22 21:28 02/15/22 20:00
[2022-02-17 05:40] LABS: Hematocrit 39.9 % (42.0-52.0); Hemoglobin 13.2 g/dL (14.0-18.0); Mean Corpuscular HGB Conc 33.1 g/dl (32-36); Mean Corpuscular Hemoglobin 30.8 pg (26-34); Mean Platelet Volume 10.9 fl (7.4-10.4); Platelet Count Result 244 k/mm3 (150-375); Red Blood Count 4.29 M/mm3 (4.6-6.20); Red Cell Distribution Width 13.5 % (11.5-14.5); White Blood Count 11.3 K/mm3 (4.5-10.0)
[2022-02-17 06:00] VITALS: BP 122/86; PULSE 82; RESP 14; TEMP 36.4; O2SAT 96
[2022-02-17 06:41] LABS: Anion Gap 5 mmol/L (8-16); Blood Urea Nitrogen 16 mg/dL (9-20); Calcium 8.1 mg/dL (8.4-10.2); Carbon Dioxide 30 mmol/L (22-30); Chloride 102 mmol/L (98-107); Estimated CRCL calculation 174 ml/min; Estimated Glomerular Filt Rate > 60; Glucose 174 mg/dL (65-110); Sodium 137 mmol/L (137-145)
[2022-02-17 07:53] VITALS: PULSE 80; RESP 16
[2022-02-17] MEDS: ALBUTEROL SULFATE NEB 2.5 MG/3 ML INH 5 MG INHALATION (07:53)
[2022-02-17] MEDS: IPRATROPIUM BR 0.02% INH SOLN 0.5 MG/2.5 ML VIAL INHALATION (07:53)
[2022-02-17 08:00] VITALS: O2SAT 96
[2022-02-17] MEDS: predniSONE 40 MG, predniSONE 10 MG 50 MG PO (08:14)
[2022-02-17] MEDS: ENOXAPARIN 40 MG/0.4 ML SYRINGE SUB-Q (08:14)
--- NOTE | 2022-02-17 09:58 | PM.DS ---
DS: Admitting Diagnosis Discharge Date 02/17/2022 Admitting Diagnosis shortness of breath DS: Discharge Diagnosis Discharge Diagnosis (1) Pneumonia: Qualifiers: Laterality: bilateral Lung location: lower lobe of lung Pneumonia type: due to unspecified organism Qualified Code(s): J18.9 - Pneumonia, unspecified organism Code(s): J18.9 - Pneumonia, unspecified organism Status: Acute Assessment and Plan: ED-HPI narrative: This is a 31 year old male that presents to the ER for shortness of breath. Reports he was seen early this morning diagnosed with pneumonia. He was also diagnosed with influenza about 10 days ago. Reports he was started on antibiotics, steroid and given albuterol inhaler. Reports he has been taking his inhaler every 4 hours with continued wheezing and shortness of breath. Reports chest discomfort when coughing. Reports a low grade fever. Denies lower extremity edema. 02/16/2022 interval history: patient with history of asthma states he had outgrown asthma however he continued to smoke and recently had developed flu and since then he developed shortness of breath he had been using his inhaler every 4 hours without much relief, on 02/13 presented emergency depart to further evaluation CTA of the chest negative for pulmonary emboli but did show patchy infiltrate and bilateral lower lobe suspect patient has community-acquired pneumonia being treated with levofloxacin 3/ vancomycin and bronchodilators, today patient states feeling much better not as short of breath, will continue present management, repeat chest x-ray today showed persistent pneumonia, will CPM, and further recommendation to follow, will continue to monitor will have PT OT evaluate the patient. (2) Asthma exacerbation: Qualifiers: Asthma persistence: intermittent Asthma severity: unspecified severity Qualified Code(s): J45.21 - Mild intermittent asthma with (acute) exacerbation Code(s): J45.901 - Unspecified asthma with (acute) exacerbation Status: Acute Assessment and Plan: patient with history of asthma triggered by recent upper respiratory infection will continue bronchodilator. DS: Summary Hospital Course Reason for hospitalization: ED-HPI narrative: This is a 31 year old male that presents to the ER for shortness of breath. Reports he was seen early this morning diagnosed with pneumonia. He was also diagnosed with influenza about 10 days ago. Reports he was started on antibiotics, steroid and given albuterol inhaler. Reports he has been taking his inhaler every 4 hours with continued wheezing and shortness of breath. Reports chest discomfort when coughing. Reports a low grade fever. Denies lower extremity edema. patient with history of asthma states he had outgrown asthma however he continued to smoke and recently had developed flu and since then he developed shortness of breath he had been using his inhaler every 4 hours without much relief, emergency depart further evaluation CTA of the chest negative for pulmonary emboli but did show patchy infiltrate and? bilateral lower lobe suspect patient has community-acquired pneumonia being treated with levofloxacin vancomycin and bronchodilators,? will continue to monitor will have PT OT evaluate the patient, repeat chest x-ray in 2 days and further recommendation to follow. Hospital Course: patient with history of asthma states he had outgrown asthma however he continued to smoke and recently had developed flu and since then he developed shortness of breath he had been using his inhaler every 4 hours without much relief,? on 02/13 presented emergency depart to further evaluation CTA of the chest negative for pulmonary emboli but did show patchy infiltrate and? bilateral lower lobe suspect patient has community-acquired pneumonia being treated with levofloxacin 05/12? vancomycin and bronchodilators,? today patient states feeling much better not as short of breat
== END 2022-02-17 11:20 | disposition home or self-care (01) | DRG 194 ==
LOC: ANHED 02-13 02:13 → ANH3MEDSUR 02-13 03:10
PROVIDERS: Physician Assistant; Admitting Provider Internal Medicine; Emergency Provider Emergency Medicine; PCP Physician Assistant; Visit Provider Family Medicine
DX: J10.00 Influenza due to other identified influenza virus with unspecified type of pneumonia (principal); J45.901 Unspecified asthma with (acute) exacerbation; Z68.43 Body mass index [BMI] 50.0-59.9, adult; F17.210 Nicotine dependence, cigarettes, uncomplicated; E66.01 Morbid (severe) obesity due to excess calories; Z20.822 Contact with and (suspected) exposure to COVID-19
CPT/HCPCS: 36415; 36569; 71045; 71046; 71275; 80048; 80053; 80202; 83036; 83605; 84484; 85025; 85027; 85380; 85610; 85730; 87040; 87636; 93005; 94640; 96360; 96365; 96366; 96372; 96375; 96376; 99284; 99285; A9270; C1751; G0378; J1650; J1885; J1940; J1956; J2930; J3370; J7030; J7040; J7512; Q9967

== ENCOUNTER 2022-02-24 11:12 | Outpatient (CLI) | payer BC, SELFPAY ==
--- NOTE | ~2022-02-24 | XR_ITS ---
EXAMINATION: XR chest 2V DATE: 02/24/2022 11:32 INDICATION: Left lower lung pneumonia TECHNIQUE: PA and lateral views of the chest were obtained. COMPARISON: Chest radiograph dated 02/17/2022 FINDINGS: The prior opacities in the left lower lung zone have resolved. No other airspace opacities, pulmonary edema, pleural effusion or pneumothorax. The cardiomediastinal silhouette is normal. Mild thoracic s pondylosis. IMPRESSION: 1. No acute cardiopulmonary disease with resolution of prior opacities in the left lower lung zone. Reviewed, dictated and finalized at location [facility]. [facility] SCHEDULER IMPRESSION: 1. No acute cardiopulmonary disease with resolution of prior opacities in the l eft lower lung zone.
== END 2022-02-24 11:13 | disposition home or self-care (01) ==
PROVIDERS: PCP Physician Assistant; Visit Provider Physician Assistant
DX: J18.1 Lobar pneumonia, unspecified organism (principal)
CPT/HCPCS: 71046